=== PATIENT | male | born 1945 | race Caucasian/White ===

== ENCOUNTER → 2021-05-08 | Outpatient (CLI) | payer MEDICARE, OTHER ==
[~2021-05-08] MED LIST: AMITRIPTYLINE H25 M2 PO; CENTRUM SILVER1 EAC4 PO; FEXOFENADINE H180 MG PO; FEXOFENADINE HC60 MG PO; MAXZIDE-25 MG1 EACH PO; TRIGLIDE160 MG PO; XARELTO10 MG PO; XARELTO15 MG PO; ZOCOR 10 MG TAB10 MG PO
--- NOTE | 2021-05-08 17:57 | CARDNUC ---
[place] [address] CARDIAC NUCLEAR IMAGING REPORT Name: ANDREAS EVANS Room: [facility]#: [id number] Admission: 05/08/21 Attend Phys: Chuy Bynum, Discharge: Date of : 47 Date of Service: 05/08/21 1757 Report #: [id number] THIS REPORT FOR: cc: Markell Preciado MD, Bruce D. MD Liston, Michael J. MD [facility] ~ APPROVED REPORT Imaging Protocol: Rest Tc-99m/Stress Tc-99m 1 day Study performed: 05/08/2021 12:45:00 Indication: Abnormal EKG, high calcium score Patient Location: Out-Patient Stress Tech: JONATHON ONTIVEROS Stress Nurse: Viktoriya Urbina RN NM Tech:FABIAN Calero Ht: 6 ft 0 in Wt: 236 lbs BSA: 2.29 m2 BMI: 32.00 Medical History Medical History: CAD non obstructive, Diabetes, HTN, Hyperlipidemia Medications: pradaxa, finasteride, simvastatin, losartan/hctz Allergies: No known drug allergies Cardiac Risk Factors: Age, DM, Hyperlipidemia, HTN, PVD Exercise History: Physically active Resting Data Rest SPECT myocardial perfusion imaging was performed in supine position 30 minutes following the intravenous injection of 11.6 mCi of Tc-99m Sestamibi. Time of rest injection: 1300 Date: 05/08/2021 The images were gated to evaluate regional wall motion and calculate left ventricular ejection fraction. Administration Route: IV Administration Site: Left AC Exercise Stress At peak stress, the patient was injected intravenously with 33.6mCi of Tc-99m Sestamibi. Time of stress injection: 1410 Date: 05/08/2021 Administration Route: [place] [address] CARDIAC NUCLEAR IMAGING REPORT Name: ANDREAS EVANS Room: [facility]#: [id number] Admission: 05/08/21 Attend Phys: Chuy Bynum, Discharge: Date of : 47 Date of Service: 05/08/21 1757 Report #: [id number] Administration Site: Left AC Gated Stress SPECT was performed 30 minutes after stress injection. The images were gated to evaluate regional wall motion and calculate left ventricular ejection fraction. Prone imaging was performed. Stress Test Details Stress Test: Exercise stress testing was performed using a Markell protocol. HR Max Heart Rate (APMHR): 145 bpm Resting HR: 75 bpm Target HR (85% APMHR): 123 bpm Max HR Achieved: 150 bpm % of APMHR: 103 Recovery HR: 88 bpm BP Resting BP: 152/82 mmHg Max BP: 249/94 mmHg Recovery BP: 190/92 mmHg ECG Resting ECG: Sinus Rhythm, RBBB Stress ECG: Sinus tachycardia, RBBB ST Change: None Arrhythmia: VPC's Recovery ECG: Sinus Rhythm, RBBB Recovery ST Change: None Recovery Arrhythmia: VPC's Clinical Reason for Termination: Dyspnea, Fatigue Exercise duration: 5 min 0 sec Exercise capacity: 6.55 METs Overall Exercise Capacity for Age: Normal Functional Aerobic Impairment 97% The patient tolerated standard Markell protocol without significant cardiac symptoms. He exhibited limited exercise tolerance. He did achieve target heart rate. Stress ECG Conclusion The baseline twelve-lead EKG shows sinus rhythm with right bundle branch block. EKGs obtained during and post exercise show sinus rhythm and sinus tachycardia with right bundle branch block. No significant ST segment changes were noted. The patient did have occasional unifocal premature [place] [address] CARDIAC NUCLEAR IMAGING REPORT Name: NATHANANDREASPAULINO VDIAL [id number] Admission: 05/08/21 Attend Phys: Chuy Bynum, Discharge: Date of : 47 Date of Service: 05/08/21 1757 Report #: [id number] post exercise. No other stress-induced arrhythmias were noted. Study Quality Study: Fair Artifact: Moderate Diaphragmatic artifact Study Data At rest, the left ventricular ejection fraction was 71%.. Post stress, the left ventricular ejection was 79%.. TID = 0.83. Perfusion Perfusion images obtained in the supine position at rest and post Lexiscan stress show a large region of significant photopenia involving the entire inferior wall that resolves for the most part with post-rest prone imaging consistent with diaphragmatic attenuation artifact. There is a focal distal inferior wall defect noted on post-rest prone images without other defect. Wall motion in this region appears normal suggesting diaphragmatic attenuation artifact. Wall Motion Normal left ventricular wall motion. Nuclear Conclusion ECG Findings: negative for ischemia Clinical Findings: negative for ischemia Nuclear Findings: negative for ischemia Exercise Capacity: not assessed Left Ventricular Function: normal Risk Study: low Perfusion images show no reversible defect to suggest ischemia. Inferior wall photopenia likely due to diaphragmatic attenuation artifact. Global LV systolic function is normal with normal wall motion. This is a low risk study. <Conclusion> The baseline twelve-lead EKG shows sinus rhythm with right bundle branch block. EKGs obtained during and post exercise show sinus rhythm and sinus tachycardia with right bundle branch block. No significant ST segment changes were noted[place] [address] CARDIAC NUCLEAR IMAGING REPORT Name: ANDREAS EVANSMOND Room: [facility]#: [id number] Admission: 05/08/21 Attend Phys: Chuy Bynum, Discharge: Date of : 47 Date of Service: 05/08/21 1757 Report #: [id number] occasional unifocal premature ventricular contractions during and post exercise. No other stress-induced arrhythmias were noted. <ELECTRONICALLY SIGNED> By: Chuy Bynum MD, FACC 05/08/211756 56 56 Chuy Bynum MD, FACC /INF
== END ==
LOC: M.NUC 04-12 13:31
PROVIDERS: ATTEND Internal Medicine Cardiovascular Disease
DX: I10 Essential (primary) hypertension (principal); R94.31 Abnormal electrocardiogram [ECG] [EKG]; R06.00 Dyspnea, unspecified; Z86.718 Personal history of other venous thrombosis and embolism